=== PATIENT | male | born 1975 | race Hispanic/Latino ===

== ENCOUNTER 2022-03-16 12:18 | Emergency (ER) | payer SELFPAY ==
[~2022-03-16] VITALS: Ht 182.9 cm; Wt 93.2 kg
== END 2022-03-16 13:05 | disposition left against medical advice (07) ==
LOC: ED 12:18
DX: R19.7 Diarrhea, unspecified (principal)
CPT/HCPCS: 80053; 85025; 85610; 85730; 86850; 86900; 86901; 99284